=== PATIENT | female | born 1990 | race Caucasian/White ===

== ENCOUNTER 2018-08-16 08:00 | Day surgery (SDC) | payer BC ==
[2018-08-14 15:19] LABS: BASOPHILS 0.4 % (0-2); EOSINOPHILS 3.9 % (0-7); HEMATOCRIT 40.2 % (36.0-48.0); HEMOGLOBIN 13.8 g/dL (12-16); IMMATURE GRANULOCYTES 0.3 % (0-5); LYMPHOCYTES 32.1 % (15-50); MCH 30.3 pg (26.0-34.0); MCHC 34.3 g/dL (31.0-37.0); MCV 88.2 fL (80.0-100.0); MEAN PLATELET VOLUME 9.2 fL (7.4-10.4); MONOCYTES 5.4 % (2-11); NEUTROPHILS 57.9 % (40-80); PLATELET COUNT 284 10x3/uL (130-400); RBC 4.56 10x6/uL (4.00-5.40); RDW 12.7 % (11.5-14.5); WBC 7.2 10x3/uL (4.8-10.8)
[~2018-08-16] VITALS: Ht 154.9 cm; Wt 74.8 kg
[~2018-08-16 08:00] MED LIST: QVAR REDIHALE10.6 G1 INH; [UNRECOGNIZED DRUG - OTHER] PO
[2018-08-16 08:31] LABS: HCG URINE NEGATIVE (NEGATIVE)
[2018-08-16 08:58] VITALS: BP 107/56; Ht 154.9 cm; Wt 74.8 kg
--- NOTE | 2018-08-16 13:30 | NUR ---
DANNY LAGUERRE BROUGHT TO PATIENT. WAS ASKING FOR LAURA TO BE CALLED IN TO THE PHARMACY OF HER CHOICE.
--- NOTE | 2018-08-16 14:00 | NUR ---
SEVERAL ATTEMPTS TO REACH DR EPSTEIN REARJONG PATIENT'S REQUEST FOR ZOFRAN.
--- NOTE | 2018-08-16 14:30 | NUR ---
SPEAKING WITH DR EPSTEIN'S OFFICE. RECEIVED ORDER FOR ZOFRAN PRN PER DR EPSTEIN,
--- NOTE | 2018-08-16 14:40 | NUR ---
AMBULATED TO BATHROOM AND VOIDED WITHOUT DIFFICULTY. IV DC'D WITH CATHETER INTACT.
--- NOTE | 2018-08-16 14:50 | NUR ---
WRITTEN AND VERBAL DC INST GIVEN TO PATIENT. VERBALIZED UNDERSTANDING. RX FOR ZOFRAN CALLED INTO PHARMACY OF PATIENT'S CHOICE.
--- NOTE | 2018-08-16 14:55 | NUR ---
DC'D HOME WITH FAMILY VIA PRIVATE VEHICLE. TAKEN TO VEHICLE VIA WC. STABLE AT TIME OF DC.
== END 2018-08-16 14:55 | disposition home or self-care (01) ==
LOC: D.OPS 08:00
PROVIDERS: ATTEND Obstetrics & Gynecology
DX: N84.0 Polyp of corpus uteri (principal); Z01.812 Encounter for preprocedural laboratory examination